=== PATIENT | female | born 1985 | race Asian ===

== ENCOUNTER → 2018-03-13 | Outpatient (CLI) | payer OTHER ==
--- NOTE | 2018-03-13 18:17 | Diagnostic Imaging Report ---
PROCEDURE: US OB SINGLE FETUS <14 WKS. TECHNIQUE: Multiple real-time grayscale images were obtained over the gravid uterus in various projections. INDICATION: , unknown dates. COMPARISON: None. FINDINGS: There is a single live intrauterine gestation, with a pole visible, and a crown-rump length of 5.5 cm, corresponding with 12 weeks 1 day gestation, and an estimated date of delivery of 09/24/2018. heart rate is 163 bpm and the amniotic fluid appears subjectively normal. Gestational sac appears normal and oval in shape. The placenta is developing posteriorly and to the right. The left ovary is not seen. The right ovary is visible measuring 7.6 x 4.9 x 5.7 cm, containing a 5.8 cm ovarian cyst. There is flow to the right ovary. No significant free fluid is seen. IMPRESSION: 1. Single live intrauterine gestation measuring at 12 weeks and 1 day. Dictated by: Dictated on workstation # [id number]
== END ==
LOC: RAD 14:07
PROVIDERS: ATTEND Family Medicine
DX: Z34.91 Encounter for supervision of normal pregnancy, unspecified, first trimester (principal); Z3A.12 12 weeks gestation of pregnancy
CPT/HCPCS: 76801

== ENCOUNTER 2018-08-20 01:29 | Outpatient (CLI) | payer OTHER ==
[2018-08-20] VITALS (9 sets, daily range): BP systolic 115–149; BP diastolic 57–111
[~2018-08-20] VITALS: Ht 152.4 cm; Wt 73.5 kg
--- NOTE | 2018-08-20 01:37 | NUR ---
YOHAN HANEY presented to unit via wheelchair from ED, accompanied by , with c/o CONTRACTIONS. YOHAN HANEY weighed, gowned, voided, and to bed. EFHM and TOCO applied, VS taken. YOHAN HANEY oriented to bed controls, call light, TV, heat, and A/C controls.
[2018-08-20 02:00] LABS: BILIRUBIN,URINE NEGATIVE (NEGATIVE); CLARITY,URINE SLIGHTLY CLOUDY; COLOR,URINE YELLOW; GLUCOSE, URINE (UA) NEGATIVE (NEGATIVE); KETONES,URINE NEGATIVE (NEGATIVE); LEUKOCYTE ESTERASE ,URINE 3+ (NEGATIVE); NITRITE,URINE NEGATIVE (NEGATIVE); PH,URINE 6.5 (5-9); PROTEIN,URINE 1+ (NEGATIVE); UROBILINOGEN,URINE NORMAL (NORMAL)
[2018-08-20] MEDS ORDERED: IRON18TA PO (02:07)
[2018-08-20 02:08] LABS: BACTERIA,URINE MODERATE /HPF; WBC,URINE 25-50 /HPF
[2018-08-20] MEDS ORDERED: PNV11TAB5 PO (02:08)
--- NOTE | 2018-08-20 02:15 | NUR ---
pt c/o sharp right quadrant abdominal pain. rates pain 03/06. states pain has been going on since tuesday. Denies any remedies to improve pain. denies any other symptoms. notified of pt's arrival, exam, sve and u/a results. new orders received.
[2018-08-20] MEDS ORDERED: cefTRIAXone 1,000 MG IV (ROCEPHIN) VIAL ONE (02:16)
[2018-08-20] MEDS ORDERED: WATER (STERILE) FOR INJECTION 10 ML ONE (02:16)
[2018-08-20] MEDS ORDERED: LACTATED RINGERS 1,000 ML IV SCH ×2 (02:30→04:00)
[2018-08-20] MEDS ORDERED: cefTRIAXone FOR IV USE 1,000 MG in WATER (STERILE) FOR INJECTION 10 ML IV ONE (02:30)
--- NOTE | 2018-08-20 02:34 | NUR ---
pt requesting pain medication. notified new orders received.
[2018-08-20] MEDS ORDERED: BUTORPHANOL INJ 2 MG/ML (STADOL) VIAL IV ONE (02:45)
[2018-08-20] MEDS ORDERED: BETAMETHASONE ACE/NA PHOS 6 MG/ML (CELESTONE SOLUSPAN) IM SCH (02:45)
[2018-08-20 02:51] LABS: BASOPHILS % (AUTO) 0 % (0-10); EOSINOPHILS # (AUTO) 0.1 10^3/uL (0.0-0.3); EOSINOPHILS % (AUTO) 1 % (0-10); HEMATOCRIT 32 % (35-52); HEMOGLOBIN 10.2 G/DL (11.5-16.0); LYMPHOCYTES # (AUTO) 1.4 X 10^3 (1.0-4.0); LYMPHOCYTES % (AUTO) 14 % (12-44); MEAN CORPUSCULAR HEMOGLOBIN 19 PG (25-34); MEAN CORPUSCULAR HGB CONC 32 G/DL (32-36); MEAN CORPUSCULAR VOLUME 60 FL (80-99); MONOCYTES # (AUTO) 1.2 X 10^3 (0.0-1.0); MONOCYTES % (AUTO) 12 % (0-12); NEUTROPHILS # (AUTO) 7.3 X 10^3 (1.8-7.8); NEUTROPHILS % (AUTO) 73 % (42-75); PLATELET COUNT 248 10^3/uL (130-400); RED CELL DISTRIBUTION WIDTH 19.1 % (10.0-14.5)
[2018-08-20 03:10] LABS: ALANINE AMINOTRANSFERASE 44 U/L (0-55); ALBUMIN 3.3 GM/DL (3.2-4.5); ALKALINE PHOSPHATASE 151 U/L (40-136); BILIRUBIN,TOTAL 0.3 MG/DL (0.1-1.0); BUN/CREATININE RATIO 14; CALCIUM 9.7 MG/DL (8.5-10.1); CARBON DIOXIDE 18 MMOL/L (21-32); CHLORIDE 108 MMOL/L (98-107); GFR ESTIMATED > 60; GLUCOSE 101 MG/DL (70-105); POTASSIUM 4.1 MMOL/L (3.6-5.0); SODIUM 136 MMOL/L (135-145); TOTAL PROTEIN 7.4 GM/DL (6.4-8.2)
[2018-08-20] MEDS ORDERED: TERBUTALINE INJ 1 MG/ML (BRETHINE) AMP SC ONE (04:00)
[2018-08-20] MEDS ORDERED: LIDOCAINE 2% VISCOUS 15 ML UDC PO ONE (04:00)
[2018-08-20] MEDS ORDERED: ANTACID SUSP 30 ML UDC (MYLANTA) PO ONE (04:00)
[2018-08-20] MEDS ORDERED: FLU QUADRIvalent (5+ YOA) 2018-2019 (AFLURIA) 0.5 ML IM ONE (07:30)
--- NOTE | 2018-08-20 08:00 | NUR ---
dr cash here. new orders received. continuing to monitor patient.
--- NOTE | 2018-08-20 08:26 | History & Physicial (CHS) ---
HPI History of Present Illness: 33-year-old 1 female currently at 34 weeks gestation who presents with abdominal discomfort. 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 She denies any vaginal bleeding. She has not had cervical check from [facility] and she is followed by Dr. Ling. Source: patient, family Exam Limitations: clinical condition Date seen by provider: Aug 20, 2018 Time Seen by Provider: 08:15 Attending Physician Jesi Cummings MD PCP Esperanza Ling MD Consult Date of Admission Home Medications Home Medications Reviewed patient Home Medication Reconciliation performed by pharmacy medication reconciliations logistics technician and/or nursing. Patients Allergies have been reviewed. Allergies Coded Allergies: No Known Drug Allergies (Unverified , 08/20/18) JLM-[id number]-Ubjgqh Hx Patient Social History Recent Foreign Travel: No Contact w/other who traveled: No Recent Infectious Disease Expo: No Physical Abuse Screen: No Sexual Abuse: No Review of Systems (CHC) Constitutional: see HPI Reviewed Test Results Reviewed Test Results Lab Laboratory Tests Test 08/20/18 01:50 08/20/18 02:30 Range/Units Urine Color YELLOW Urine Clarity SLIGHTLY CLOUDY Urine pH 6.5 5-9 Urine Specific [place] 1.010 L 1.016-1.022 Urine Protein 1+ H NEGATIVE Urine Glucose (UA) NEGATIVE NEGATIVE Urine Ketones NEGATIVE NEGATIVE Urine Nitrite NEGATIVE NEGATIVE Urine Bilirubin NEGATIVE NEGATIVE Urine Urobilinogen NORMAL NORMAL MG/DL Urine Leukocyte Esterase 3+ H NEGATIVE Urine RBC (Auto) 2+ H NEGATIVE Urine RBC 2-5 H /HPF Urine WBC 25-50 H /HPF Urine Squamous Epithelial Cells 10-25 H /HPF Urine Crystals NONE /LPF Urine Bacteria MODERATE H /HPF Urine Casts NONE /LPF Urine Mucus MODERATE H /LPF Urine Culture Indicated YES White Blood Count 10.0 4.3-11.0 10^3/uL Red Blood Count 5.29 4.35-5.85 10^6/uL Hemoglobin 10.2 L 11.5-16.0 G/DL Hematocrit 32 L 35-52 % Mean Corpuscular Volume 60 L 80-99 FL Mean Corpuscular Hemoglobin 19 L 25-34 PG Mean Corpuscular Hemoglobin Concent 32 32-36 G/DL Red Cell Distribution Width 19.1 H 10.0-14.5 % Platelet Count 248 130-400 10^3/uL Mean Platelet Volume 7.4-10.4 FL Neutrophils (%) (Auto) 73 42-75 % Lymphocytes (%) (Auto) 14 12-44 % Monocytes (%) (Auto) 12 0-12 % Eosinophils (%) (Auto) 1 0-10 % Basophils (%) (Auto) 0 0-10 % Neutrophils # (Auto) 7.3 1.8-7.8 X 10^3 Lymphocytes # (Auto) 1.4 1.0-4.0 X 10^3 Monocytes # (Auto) 1.2 H 0.0-1.0 X 10^3 Eosinophils # (Auto) 0.1 0.0-0.3 10^3/uL Basophils # (Auto) 0.0 0.0-0.1 10^3/uL Sodium Level 136 135-145 MMOL/L Potassium Level 4.1 3.6-5.0 MMOL/L Chloride Level 108 H 98-107 MMOL/L Carbon Dioxide Level 18 L 21-32 MMOL/L Anion Gap 10 5-14 MMOL/L Blood Urea Nitrogen 10 7-18 MG/DL Creatinine 0.70 0.60-1.30 MG/DL Estimat Glomerular Filtration Rate > 60 BUN/Creatinine Ratio 14 Glucose Level 101 70-105 MG/DL Calcium Level 9.7 8.5-10.1 MG/DL Corrected Calcium 10.3 H 8.5-10.1 MG/DL Total Bilirubin 0.3 0.1-1.0 MG/DL Aspartate Amino Transf (AST/SGOT) 27 5-34 U/L Alanine Aminotransferase (ALT/SGPT) 44 0-55 U/L Alkaline Phosphatase 151 H 40-136 U/L Total Protein 7.4 6.4-8.2 GM/DL Albumin 3.3 3.2-4.5 GM/DL Physical Exam-([facility]) Physical Exam Vital Signs VS - Last 72 Hours, by Label 08/20/18 08/20/18 08/20/18 01:46 03:50 06:30 Temp 98.2 98.2 98.9 Pulse 110 104 119 Resp 18 18 18 B/P (MAP) 131/88 (102) 125/72 (89) 121/73 (89) O2 Delivery Room Air Room Air Room Air Capillary Refill : General Appearance: mild distress Gastrointestinal: tenderness (Primarily of the right upper quadrant) Back: no CVA tenderness, other (She does have tenderness of the lumbar muscles bilaterally) Comments Cervical check was performed by nurse and she is noted to be at 3 cm dilated with vertex presenting part Assessment/Plan Assessment/Plan Admission Status: Observation Reason for Inpatient Admission: IV fluid rehydration. Initiation of IV antibiotics for urine. Assessment & Plan 1. Intrauterine at 34 weeks gestation -Continue to monitor for labor pattern. She has received Brethine 1 2. Right upper quadrant abdominal pain -Check gallbladder ultrasound 3. Bilateral lumbar back painexclude pyelonephritis -Check catheter urine JESI CUMMINGS MD Aug 20, 2018 08:26
[2018-08-20] MEDS ORDERED: fentaNYL INJECTION 100 MCG/2 ML AMP IVP PRN (08:30)
[2018-08-20 08:58] LABS: BILIRUBIN,URINE NEGATIVE (NEGATIVE); CLARITY,URINE CLEAR; COLOR,URINE YELLOW; GLUCOSE, URINE (UA) NEGATIVE (NEGATIVE); KETONES,URINE NEGATIVE (NEGATIVE); LEUKOCYTE ESTERASE ,URINE 3+ (NEGATIVE); NITRITE,URINE NEGATIVE (NEGATIVE); PH,URINE 6.5 (5-9); PROTEIN,URINE 1+ (NEGATIVE); UROBILINOGEN,URINE NORMAL (NORMAL)
[2018-08-20 09:07] LABS: BACTERIA,URINE NEGATIVE /HPF; RBC,URINE 0-2 /HPF; SQUAMOUS EPITHELIAL CELL,UR RARE /HPF; WBC,URINE 25-50 /HPF
--- NOTE | 2018-08-20 10:38 | NUR ---
patient back to bed after voiding. FHT's noted in 70's. repositioned patient to back from right side, continuing to adjust EFM to hear FHT's. FHT's down for a minimum of 2.5-3min. RN continuing to remain at bedside. 1040 dr cash notified of FHT's and events leading up to discovery and recovery back into 130's at this time and interventions taken to recover FHT's.
--- NOTE | 2018-08-20 11:00 | NUR ---
dr cash here to OB. reviewing strip. patient resting in bed. 1115 discussing poc at bedside with patient about possibility of transfer r/t labor. [address] cash. 1130 new orders received by dr cash. 1135 EMS notified of need for transfer. 1150 transfer form signed by patient with use of professor of languages. 1155 director staffing at bedside discussing poc for transfer to [facility] in [place], [place].
[2018-08-20] MEDS ORDERED: MAGNESIUM SULFATE DRIP 500 ML IV ONE (11:31)
[2018-08-20] MEDS ORDERED: MAGNESIUM 4 GM/100 ML IVPB 100 ML IV ONE (11:31)
--- NOTE | 2018-08-20 11:42 | Discharge Inst-Simple/Standard ---
Discharge Inst-Standard Patient Instructions/Follow Up Plan of Care/Instructions/FU: Transfer to [facility] Activity as Tolerated: No Discharge Diet: Other Diet (Nothing by mouth) JESI CUMMINGS MD Aug 20, 2018 11:42
[2018-08-20] MEDS ORDERED: CALCIUM GLUC. 10% 4.65 MEQ/10 ML VIAL IV PRN (11:45)
[2018-08-20] MEDS ORDERED: MAGNESIUM 4 GM/100 ML IVPB 100 ML IV NR (11:45)
--- NOTE | 2018-08-20 11:50 | NUR ---
fan on, reports feeling flushed and hot with magnesium bolus.
--- NOTE | 2018-08-20 11:50 | Discharge Summary ---
Diagnosis/Chief Complaint Date of Admission Aug 20, 2018 Date of Discharge Aug 20, 2018 Admission Diagnosis Admission Diagnosis 1. IUP at 35w1d by early US and 34w5d by LMP in labor 2. UTI Discharge Diagnosis 1. IUP at 35w1d by early US and 34w5d by LMP in labor 2. UTI Chief Complaint/HPI Chief Complaint/HPI 33-year-old 1 female currently at 34 weeks gestation who presents with abdominal discomfort. Patient presented during the retoucher photoengraving of August 20. She denies any vaginal bleeding. She has not had cervical check from [facility] and she is followed by Dr. Ling. Discharge Summary-Simple/Stand Consultations Discharge Physical Examination Allergies: Coded Allergies: No Known Drug Allergies (Unverified , 08/20/18) Vitals & I&Os Vital Sign - Last 12Hours Date Time Temp Pulse Resp B/P (MAP) Pulse Ox O2 Delivery O2 Flow Rate FiO2 08/20/18 06:30 98.9 119 18 121/73 (89) Room Air General Appearance: No Acute Distress Respiratory: Clear to Auscultation Cardiovascular: Regular Rate Abdominal: Soft, Other (cervix at 4cm, 80% effaced. Vtx presentation.) Hospital Course Was the Problem List Reviewed?: Yes Patient was initially admitted for observation and was initially placed on IV fluids 500 mL bolus followed by 125 mL per hour. She has continued to receive 125 mL/h since her arrival early this morning at approximately 2 a.m. She is noted to be with a due date of September 23, 2018 based upon early 12 week ultrasound and September 26, 2018 based upon her LMP. She is noted to be at 35 weeks 1 day gestation based upon the ultrasound due date and 34 weeks 5 days gestation by the LMP. She received betamethasone 12 mg IM shortly after arrival. She was noted to be with contractions and dilated to 3 cm. She had also received 1 dose of Brethine 0.25 subcutaneous early this morning. The initial urine analysis was a clean catch and noted to be with large bacteria and 3+ blood and 3+ leukocytes. She was given a dose of Rocephin 1 g IV. She has continued to complain of abdominal discomfort despite having fewer uterine contractions. Her cervix exam based upon labor nurse currently is 4-1/2 cm with 80 percent cervical effacement and vertex presentation. Since she continues to dilate slowly and most likely her would need the help of neonatology at 35 weeks gestation, she is going to be transferred to [facility] birthing center. Dr. Ding has been contacted at [place] and accepted. Patient will be arranged to go to [place] by [facility]. Discharge Instructions to patient/family Please see electronic discharge instructions given to patient. Discharge Medications Reviewed and agree with Discharge Medication list on patient's Discharge Instruction sheet JESI CUMMINGS MD Aug 20, 2018 11:50
--- NOTE | 2018-08-20 12:05 | NUR ---
resting quietly no s/s of distress noted. cool cloth to forehead. magnesium bolus completed. s/o at bedside.
[2018-08-20] MEDS ORDERED: MAGNESIUM SULFATE DRIP 500 ML IV SCH (12:07)
--- NOTE | 2018-08-20 12:52 | NUR ---
out of WS on stretcher to be transferred to [facility] for labor.
== END 2018-08-20 12:52 | disposition short-term general hospital (02) ==
LOC: WSo 01:29 → LDRP 01:30 → WSo 12:52
PROVIDERS: ATTEND Family Medicine
DX: O60.03 Preterm labor without delivery, third trimester (principal); O23.43 Unspecified infection of urinary tract in pregnancy, third trimester; Z3A.35 35 weeks gestation of pregnancy
CPT/HCPCS: 36415; 80053; 81000; 85025; 87077; 87088; 87186; 96361; 96372; 96374; 96375; 96376; 99214